=== PATIENT | female | born 1995 | race Caucasian/White ===

== ENCOUNTER → 2018-07-20 15:12 | Outpatient (CLI) | payer SELFPAY | PROVIDERS: Family Provider Pediatrics; Visit Provider Physician Assistant | DX: N39.0 Urinary tract infection, site not specified (principal) | CPT/HCPCS: 87077; 87086; 87186 ==

== ENCOUNTER → 2018-12-14 10:44 | Outpatient (CLI) | payer SELFPAY | PROVIDERS: Family Provider Pediatrics; Visit Provider Physician Assistant | DX: N39.0 Urinary tract infection, site not specified (principal) | CPT/HCPCS: 87086 ==

== ENCOUNTER → 2019-07-15 11:43 | Outpatient (CLI) | payer OTHER, MEDICAID, SELFPAY ==
--- NOTE | 2019-07-15 11:45 | DI.US.S_ITS ---
PROCEDURE: US OB <= 14 WEEKS FETUS INDICATIONS: INITIAL US FOR DATING AND VIABILITY OUTSIDE/PRIOR DATING DATA: Last menstrual period (LMP): 05/19/19. LMP-based estimated date of delivery (DIVYA): 02/23/20. First dating scan (date and location): This study, 07/15/19. Estimated date of delivery (DIVYA) from first dating scan: 03/07/20. TECHNIQUE: Real-time scanning was performed of the fetus and maternal pelvic organs, with image documentation. Endovaginal scanning was also performed to better visualize the fetus and maternal ovaries. COMPARISON: None. FINDINGS: Embryo: [place]-rump length of 5 mm correlates with a gestational age of 6 weeks 2 days, plus or -5 days Measurement variability in dating: +/- 4 weeks by LMP, +/- 7 days by mean sac diameter (use before 6 weeks gestation if crown-rump length not able to be measured), +/- 5 days by crown-rump length (up to 8 weeks 6 days gestation), +/- 7 days by crown-rump length (up to 13 weeks 6 days gestation). Maternal organs: Ovaries with appeared normal. Limited images through the kidneys demonstrate no hydronephrosis. IMPRESSION: 6 week 2 day gestational age with delivery date projected to be centered on 03/07/20, plus or -5 days. Followup anatomic survey at 20 weeks gestation is recommended. Dictated by: Chris Reyes M.D. on 07/15/2019 at 14:25 Approved by: Chris Reyes M.D. on 07/15/2019 at 14:33
== END ==
PROVIDERS: Visit Provider Obstetrics & Gynecology
DX: Z34.91 Encounter for supervision of normal pregnancy, unspecified, first trimester (principal); Z3A.01 Less than 8 weeks gestation of pregnancy
CPT/HCPCS: 76801

== ENCOUNTER → 2019-07-28 19:38 | Outpatient (CLI) | payer OTHER, MEDICAID, SELFPAY | PROVIDERS: Visit Provider Physician Assistant | DX: R30.0 Dysuria (principal) | CPT/HCPCS: 87077; 87086 ==

== ENCOUNTER → 2019-08-10 14:40 | Outpatient (CLI) | payer OTHER, MEDICAID, SELFPAY ==
[2019-08-10 15:31] LABS: Appearance Urine UA CLEAR; Bilirubin Urine UA NEGATIVE (NEGATIVE); Color Urine UA YELLOW; Glucose Urine UA NEGATIVE (Negative); Ketones Urine UA NEGATIVE (NEGATIVE); Leukocyte Esterase Urine UA NEGATIVE (NEGATIVE); Nitrite Urine UA NEGATIVE (Negative); Occult Blood Urine UA NEGATIVE (Negative); Protein Urine UA NEGATIVE (Negative); Specific Gravity Urine UA <=1.005 (1.000-1.035); Urobilinogen Urine UA 0.2 E.U./dL (0.2)
[2019-08-10 15:32] LABS: Add Manual Diff / Slide Review NO; Basophils Absolute Auto 0 /uL (0-100); Basophils Percent Auto 0.3 % (0-2); Eosinophils Absolute Auto 100 /uL (0-450); Eosinophils Percent Auto 1.2 % (2-4); Hemoglobin 12.1 g/dL (12.0-16.0); Lymphocytes Absolute Auto 1600 /uL (1100-4500); Lymphocytes Percent Auto 22.8 % (25-40); Mean Corpuscular HGB Conc 34.6 % (30-36); Mean Corpuscular Volume 92.4 fL (80-100); Monocytes Absolute Auto 400 /uL (0-900); Monocytes Percent Auto 5.2 % (3-14); Neutrophils Absolute Auto 4900 /uL (1500-7000); Neutrophils Percent Auto 70.5 % (50-75); Platelet Count 260 X10^3/uL (150-400); Red Blood Cell Count 3.78 X10^6/uL (4.0-5.2); Red Cell Distribution Width 12.4 % (11.6-14.8); White Blood Cell Count 6.9 X10^3/uL (4.5-11.0)
[2019-08-10 17:58] LABS: Hepatitis B Surface Antigen NEGATIVE s/c (NEGATIVE)
[2019-08-10 18:08] LABS: HIV 1 & 2 Ab/Ag 4th Gen Combo NEGATIVE (NEGATIVE); Hep C Virus Ab w/Reflex Quant NEGATIVE s/c (NEGATIVE)
[2019-08-15 15:21] LABS: RPR Screen NONREACTIVE
== END ==
PROVIDERS: Visit Provider Obstetrics & Gynecology
DX: Z34.01 Encounter for supervision of normal first pregnancy, first trimester (principal)
CPT/HCPCS: 36415; 80055; 81003; 86787; 86803; 86850; 86900; 86901; 87086; 87389

== ENCOUNTER → 2019-10-21 07:37 | Outpatient (CLI) | payer OTHER, MEDICAID, SELFPAY ==
--- NOTE | 2019-10-21 07:40 | DI.US.S_ITS ---
PROCEDURE: US OB >= 14 WEEKS FETUS INDICATIONS: ANATOMY OUTSIDE/PRIOR DATING DATA: Last menstrual period (LMP): 05/19/19. LMP-based estimated date of delivery (DIVYA): 02/23/20. First dating scan (date and location): 07/15/19. Estimated date of delivery (DIVYA) from first dating scan: 03/17/20. TECHNIQUE: Real-time scanning was performed of the fetus, with image documentation and biometric measurements. Endovaginal scanning: Not performed COMPARISON: [facility], , OB >= 14 WEEKS FETUS, 10/04/2019, 10:08. FINDINGS: General: A single living intrauterine gestation is present. Presentation: Transverse with head towards maternal left side. Placenta: Placental position is posterior inferior. Tip of the placenta is near the internal os. Amniotic fluid index: 14.9 cm, normal range is 5-24 cm. heart rate: 143 beats per minute. Maternal cervical canal: 3.2 cm long. Normal lower limit is 2.5 cm. biometrics: Biparietal diameter: 4.5 cm, 19 weeks, 4 days. Head circumference: 17.7 cm, 20 weeks, one day. Abdominal circumference: 15.2 cm, 20 weeks, 3 days. Femur length: 3.2 cm, 19 weeks, 6 days. Estimated gestational age from initial scan: 20 weeks, 2 days. Composite gestational age from present scan: 20 weeks, zero days. Estimated weight and percentile: 335 g Measurement variability for biometric dating: +/- 7 days from 14 weeks to 15 weeks 6 days gestation, +/- 10 days from 16 weeks to 21 weeks 6 days gestation, +/- 2 weeks from 22 weeks to 27 weeks 6 days gestation, +/- 3 weeks for 28 weeks gestation or later. weight reference: 4500 g or EFW >90/95% is considered macrosomia or large for gestational age. EFW <10% is small for gestational age. EFW 5% or less is considered intra-uterine growth restriction. Anatomic survey: Neuro: Ventricles are non-dilated at less than 10 mm. Cisterna magna is normal at 3-11 mm. Cerebellum is normal in size and morphology. Nuchal skin fold: Normal at less than 6 mm between 14-21 weeks gestational age. Face: Nose and lips, facial profile are normal. Spine: No evidence for spina bifida. Heart: 4-chambered heart is present, with normal ventricular outflow tracts. Diaphragm: Diaphragm is intact. Stomach: Left-sided stomach is present. Kidneys: No hydronephrosis. Normal is less than 5 mm in 2nd trimester, less than 7 mm in 3rd trimester. Cord: 3-vessel cord has orthotopic insertion. Bladder: Normal in size. Extremities: All 4 extremities identified. IMPRESSION: 1. Single live intrauterine . The fetus is in transverse presentation. heart rate is 143 beats per minute. Normal amount of amniotic fluid. 2. Normal anatomy. 3. Low-lying posterior placenta. No papito placenta previa. Followup study is recommended. Dictated by: Enzo Camp M.D. on 10/21/2019 at 12:40 Approved by: Enzo Camp M.D. on 10/21/2019 at 12:45
== END ==
PROVIDERS: Visit Provider Obstetrics & Gynecology
DX: Z36.89 Encounter for other specified antenatal screening (principal); Z3A.20 20 weeks gestation of pregnancy
CPT/HCPCS: 76811

== ENCOUNTER → 2019-11-28 11:17 | Outpatient (CLI) | payer OTHER, MEDICAID, SELFPAY ==
[2019-11-28 13:41] LABS: Hematocrit 31.8 % (36-46); Hemoglobin 11.2 g/dL (12.0-16.0)
[2019-11-28 14:12] LABS: GTT (PREG) 1 Hour PP 50gm Dose 110 mg/dL (76-139)
== END ==
PROVIDERS: Visit Provider Obstetrics & Gynecology
DX: Z34.02 Encounter for supervision of normal first pregnancy, second trimester (principal); Z3A.24 24 weeks gestation of pregnancy
CPT/HCPCS: 36415; 82950; 85014; 85018

== ENCOUNTER → 2020-01-04 08:32 | Outpatient (CLI) | payer OTHER, MEDICAID, SELFPAY ==
--- NOTE | 2020-01-04 08:34 | DI.US.S_ITS ---
PROCEDURE: US OB LIMITED INDICATIONS: LOW LYING PLACENTA F/U OUTSIDE/PRIOR DATING DATA: Last menstrual period (LMP): 05/19/19. LMP-based estimated date of delivery (DIVYA): 02/23/20. First dating scan (date and location): 07/15/19. Estimated date of delivery (DIVYA) from first dating scan: 03/07/20. TECHNIQUE: Real-time scanning was performed of the fetus, with image documentation. Endovaginal scanning: Not needed COMPARISON: [facility], OB >= 14 WEEKS FETUS, 10/21/2019, 7:57. [facility], OB >= 14 WEEKS FETUS, 10/04/2019, 10:08. [facility], OB <= 14 WEEKS FETUS, 08/10/2019, 14:19. [facility], OB <= 14 WEEKS FETUS, 07/15/2019, 11:54. FINDINGS: A single living intrauterine gestation is present. Presentation: Vertex Placenta: Placental position is posterior without previa. Amniotic fluid index: 17.0 cm, normal range is 5-24 cm. heart rate: 143 beats per minute. Maternal cervical canal: 4.6 cm long. Normal lower limit is 2.5 cm. Estimated gestational age from initial scan: 31 weeks 0 days. IMPRESSION: The relationship of the placenta to the internal os of the cervical canal has clarified, with no evidence of previa, and the placental margin at least 5.1 cm from the internal os. Dictated by: Chris Reyes M.D. on 01/04/2020 at 12:02 Approved by: Chris Reyes M.D. on 01/04/2020 at 16:42
== END ==
PROVIDERS: PCP Family Medicine; Referring Provider Family Medicine; Visit Provider Family Medicine
DX: O44.43 Low lying placenta NOS or without hemorrhage, third trimester (principal); Z3A.31 31 weeks gestation of pregnancy
CPT/HCPCS: 76815

== ENCOUNTER → 2020-02-08 12:04 | Outpatient (CLI) | payer OTHER, MEDICAID, SELFPAY ==
[2020-02-09 13:04] LABS: Strep Grp B PCR NEG for Grp B Strep
== END ==
PROVIDERS: PCP Family Medicine; Visit Provider Family Medicine
DX: Z34.00 Encounter for supervision of normal first pregnancy, unspecified trimester (principal); Z3A.36 36 weeks gestation of pregnancy
CPT/HCPCS: 87653

== ENCOUNTER 2020-03-01 18:08 | Inpatient (IN) | payer OTHER, MEDICAID, SELFPAY ==
[2020-03-01] MEDS: DINOPROSTONE VAG (CERVIDIL) 10 MG VAG (20:40)
[2020-03-01 21:51] LABS: Add Manual Diff / Slide Review NO; Basophils Absolute Auto 100 /uL (0-100); Basophils Percent Auto 0.5 % (0-2); Eosinophils Absolute Auto 100 /uL (0-450); Eosinophils Percent Auto 0.8 % (2-4); Hematocrit 38.8 % (36-46); Lymphocytes Absolute Auto 2900 /uL (1100-4500); Lymphocytes Percent Auto 29.2 % (25-40); Mean Corpuscular HGB Conc 33.4 % (30-36); Mean Corpuscular Hemoglobin 30.6 PG (26-34); Mean Corpuscular Volume 91.6 fL (80-100); Monocytes Absolute Auto 400 /uL (0-900); Monocytes Percent Auto 4.5 % (3-14); Neutrophils Absolute Auto 6500 /uL (1500-7000); Platelet Count 165 X10^3/uL (150-400); Red Blood Cell Count 4.23 X10^6/uL (4.0-5.2); Red Cell Distribution Width 13.3 % (11.6-14.8)
[2020-03-01 23:32] VITALS: BP 110/76
--- NOTE | 2020-03-02 04:14 | P.HPOB_ITS ---
OB HPI Date/Time Date of admission: 03/01/20 Date Patient Seen: 03/02/20 Time Patient Seen: 04:15 History of Present Condition Chief complaint: EVAL OF LABOR : 1 Para: 0 Estimated Date of Delivery: 03/07/20 Estimated Gestational Age (weeks): 39w2d Narrative: Nette Vyas is a 25 year old at 39w2d here for elective IOL. Pt reports mild cramping prior to presentation. No vaginal bleeding or LOF. She was feeling baby move regularly. Indications Indication for induction OB: other (elective due to COVID-19) History of Present care: good care, initiated at week # (10) and pounds weight gain (13) Dating criteria: based on 1st trimester US only Ultrasounds: normal 1st trimester US and normal mid trimester US Abnormal ultrasound findings: low-lying placenta resolved on repeat ultrasound Obstetrical complications: none Medical complications: none Preadmission Labs Blood type: O (+) positive -: Antibody screen: negative, GBS status: negative, HBsAG: negative, HIV: negative and RPR/VDLR: negative -: Chlamydia screen: not detected and Gonorrhea screen: not detected -: Rubella: immune and Varicella: immune HCT: 31.8 HCAB: negative PAP: Normal 1 hr GTT: 110 Evaluation Evaluation Baseline heart rate: 130 Variability: Moderate (11-25) monitor accelerations: Present monitor decelerations: Variable Contraction Frequency (minutes): 1 Uterine Contraction Intensity: Strong/Firm Category of Tracing: II Cervical dilation (cm): 9 Cervical effacement (%): 100 station: +1 Laboratory results: Laboratory Tests 03/01/20 03/01/20 21:45 21:45 WBC 10.0 RBC 4.23 Hgb 13.0 Hct 38.8 MCV 91.6 MCH 30.6 MCHC 33.4 RDW 13.3 Plt Count 165 Neut % (Auto) 65.0 Lymph % (Auto) 29.2 Jennings % (Auto) 4.5 Eos % (Auto) 0.8 L Baso % (Auto) 0.5 Neut # (Auto) 6500 Lymph # (Auto) 2900 [place] # (Auto) 400 Eos # (Auto) 100 Baso # (Auto) 100 Blood Type O Positive Antibody Screen Negative [facility] Social History Smoking Status: Never smoker Meds Home Medications and Allergies Home Medications Medication Instructions Recorded Confirmed Type prenat.vits,kaylyn,tfs-xwtk-gflio 1 tab PO DAILY 01/11/20 01/11/20 History Allergies Allergy/AdvReac Type Severity Reaction Status Date / Time INGREDIENT: NO KNOWN - NO Allergy Unknown Uncoded 01/11/20 11:33 KNOWN DRUG ALLERGY Exam Vital Signs (past 8 hours): - 03/01/20 23:32 Blood Pressure 110/76 Narrative Exam Narrative: Gen: NAD, laying comfortably in bed, appears well CV: RRR, no murmurs Resp: clear to auscultation bilaterally Abd: soft, nondistended, gravid Ext: no edema Objective Labs Result Diagrams: 03/01/20 21:45 Labs: Laboratory Results - last 24 hr 03/01/20 03/01/20 21:45 21:45 WBC 10.0 RBC 4.23 Hgb 13.0 Hct 38.8 MCV 91.6 MCH 30.6 MCHC 33.4 RDW 13.3 Plt Count 165 Neut % (Auto) 65.0 Lymph % (Auto) 29.2 Jennings % (Auto) 4.5 Eos % (Auto) 0.8 L Baso % (Auto) 0.5 Neut # (Auto) 6500 Lymph # (Auto) 2900 Jennings # (Auto) 400 Eos # (Auto) 100 Baso # (Auto) 100 Blood Type O Positive Antibody Screen Negative Assessment and Plan Assessment and Plan Assessment and Plan narrative: 25yo at 39w2d here for elective IOL. Pt received cervidil overnight. Had SROM at 1:30am with clear fluid. Cervidil removed. Pt with tachysystole contraction pattern, q1-2 minutes. Now with recurrent variable decelerations, with rapidly changing cervix from 5 to 9cm in less than an hour. IUPC inserted and amnioinfusion initiated to help resolve decels. - Expectant management, anticipate - FHT Category II. Continue amnioinfusion - 500cc bolus followed by 250cc/hr. Oxygen in place. Continue position changes. - Epidural in place for pain control - GBS negative, no antibiotic prophylaxis
--- NOTE | 2020-03-02 06:29 | PM.OBPRVD ---
Labor & Delivery Delivery date: 03/02/20 Intrapartal events: Intolerance Cervical ripening method: per Cervidil protocol Induction method: none Delivery monitor: external FHT Route of delivery: vacuum extraction Indication for instrumentation: nonreassuring FHR tracing Episiotomy description: None L&D Laceration Description: Perineal - 2nd Degree and Labial Delivery repair: chromic Estimated blood loss (mL): 250 Anesthesia type: Epidural Complications: None Narrative: PROCEDURE: at 39w2d presented for IOL and was admitted to Labor and Delivery. She received cervidil for induction. Soon after placement, the pt began having regular painful contractions. The patient progressed through the 1st stage over 3 hours. Pain was controlled with an epidural. The pt progressed rapidly. She had recurrent variable decels, and IUPC was placed with amnioinfusion initiated. The decels improved, but did not cease entirely. With pushing, the pt had deep decelerations. With time, recovery to baseline began to slow, with less variability when at baseline (minimal). Due to this, the decision was made to proceed with a vacuum-assisted vaginal delivery. Patient was evaluated and noted to have adequate pain control. Patient counseled on risks/benefits/alternatives of vacuum assisted delivery. Risks were discussed and they included but were not limited to a need for an episiotomy, pressure nur on the baby, lacerations to the baby's scalp/face, serious damage including skull fracture, the need to proceed with an abdominal procedure, , paralysis of the baby's arms and/or legs, neurological impairment of the baby. Alternatives would include CS or further observation depending on status. Questions were answered and the patient verbalized an understanding and decided to proceed. Cervix completely dilated and maternal bladder emptied. Maternal pelvis was noted to be adequate Vertex presentation and +3 station. Vacuum cup of the [employer] applied to the flexion point without difficulty and during contractions, pressure applied between 400-600 mmHg as indicated in the green zone of the pressure gauge. Infant delivered after 12 pulls over 4 contractions with 0 pop-offs over an intact perineum. Total duration of application of the vacuum was 7 minutes. The anterior shoulder and remainder of the was delivered without difficulty. Cord clamped and cut after it stopped pulsing. was placed on maternal abdomen. Due to spontaneous cry immediately after delivery and pt appearing well, cord gases were not collected. Infant was examined and no evidence of injury noted. Total length of the 2nd stage was 1 hour with delivered a viable female infant with APGARs 9/9 at 5:41. The perineum and vagina were inspected with small second degree perineal and right labial lacerations repaired with 3-O Chromic. PREPROCEDURE DIAGNOSIS: Intrauterine at 39w2d GBS negative RH positive POSTPROCEDURE DIAGNOSIS: Intrauterine at 39w2d, delivered Same as preprocedure Non-reassuring heart tones Vacuum-assisted vaginal delivery ROM APPEARANCE: Clear BABY A DELIVERY TIME: 5:41 BABY A WEIGHT: 6lb13.5oz BABY A NUCHAL CORD: None PLACENTA DELIVERY TIME: 5:47 PLACENTA APPEARANCE: Intact [place] Baby 1: gender: Female Presentation: vertex position: Transverse Placenta delivery description: Spontaneous cord vessel description: 3 Vessels score (1 min): 9 score (5 min): 9 Plan for aftercare: Normal care
[2020-03-02] MEDS: LANOLIN OINT 7 GM 1 APPLIC TOP (09:58)
[2020-03-02] MEDS: IBUPROFEN 600 MG TABLET PO ×3 (09:58→22:15)
[2020-03-02] MEDS: DOCUSATE 100 MG CAPSULE PO (09:58)
[2020-03-02] MEDS: ACETAMINOPHEN 325 MG TABLET 650 MG PO ×3 (09:59→22:14)
[2020-03-03] MEDS: ACETAMINOPHEN 325 MG TABLET 650 MG PO ×2 (04:16→12:23)
[2020-03-03] MEDS: IBUPROFEN 600 MG TABLET PO (04:17)
[2020-03-03] MEDS: DOCUSATE 100 MG CAPSULE PO (08:31)
--- NOTE | 2020-03-03 09:15 | P.DS_ITS ---
Discharge Providers Provider Date of admission: 03/01/20 18:08 Discharge Date: 03/03/20 Primary care physician: Carol Welch MD Consults: 03/03/20 06:27 Consult to Insurance Sales Manager Routine Comment: Discharge provider: Carol Welch MD Summary Hospital Course Date Patient Seen: 03/03/20 Time Patient Seen: 09:00 Procedures: Vacuum-assisted vaginal delivery Hospital Course: The pt presented for elective IOL at 39w1d. She received cervidil overnight, and progressed into active labor. She had SROM with clear fluid. She had an epidural for pain control. She rapidly progressed to complete dilation, with Category II tracing with repetitive variable decels. IUPC was placed with amnioinfusion started, with some improvement in tracing. During pushing, the pt has recurrent decels with progressively slowing return to baseline and minimal variability between. Due to nonreassuring heart tones, vacuum was used for delivery. The pt had a vaginal delivery of a viable baby girl on 03/01/20. A small 2nd degree perineal laceration and right labial laceration were repaired. The pt tolerated delivery well. there were no complications. At the time of discharge she was voiding, ambulating, and passing flatus without dif ficulty. Her lochia was decreasing appropriately. She was with good latch. She will f/u in clinic in 6 weeks for her check. Peripartum Data Infant Delivery Method: Assisted Delivery (vacuum) Laceration description: Perineal - 2nd Degree Episiotomy description: None Procedures: Vacuum-assisted vaginal delivery complications: none [place] 1: Gender: Female Disposition of : home Discharge Diagnosis (1) Vacuum-assisted vaginal delivery: Status: Acute Status at Discharge Cognitive/behavioral status at discharge: oriented Functional status at discharge: independent ambulation Overall status at discharge: patient is progressing back to baseline Time Spent with Patient Time attestation: Total time spent providing and/or coordinating discharge services: Time spent: Greater than 30 minutes Objective Labs Result Diagrams: 03/01/20 21:45 Exam Narrative Exam Narrative: Gen: NAD, sitting comfortably in bed, appears well CV: RRR, no murmurs Resp: clear to auscultation bilaterally Abd: soft, nontender, nondistended, fundus firm and below umbilicus Ext: no edema Discharge Plan Discharge Plan Patient Disposition: Home Discharge orders & Medications Prescriptions: New acetaminophen 325 mg Tablet 650 mg PO Q6HR PRN (Reason: Pain, Mild (1-3)) Qty: 30 RF: 0 Dermoplast (with menthol) 20-0.5 % Aerosol 1 spray topical Q1HR PRN (Reason: perineal pain) Qty: 54 RF: 0 docusate sodium [DOK] 100 mg Capsule 100 mg PO DAILY Qty: 30 RF: 0 ibuprofen 600 mg Tablet 600 mg PO Q6HR PRN (Reason: Pain, Mild (1-3)) Qty: 30 RF: 0 Exu-O-Oyjcll Cream 1 applic topical PRN PRN (Reason: Tenderness) Qty: 15 RF: 0 Continued prenat.vits,kaylyn,jak-fqit-dalkz Tablet 1 tab PO DAILY RF: 0 Follow up/Referrals: Carol Welch MD [Primary Care Provider] - 6 Weeks Diet/Activity/Treatments Diet: Regular Skin/Wound/Dressing Care Report to your healthcare provider any signs of infection, such as:: chills, fever, increased pain and unusual drainage Visit Report/Discharge Packet Instructions: DI for Labor and Delivery, Vaginal Visit Report Forms: Patient Portal/API, Stroke Signs & Symptoms Discharge Data Primary Care Provider: Carol Welch
[2020-03-03 11:50] VITALS: BP 120/71; PULSE 57; RESP 17; TEMP 36.9
== END 2020-03-03 13:30 | disposition home or self-care (01) | DRG 560 ==
PROVIDERS: Admitting Provider Family Medicine; PCP Family Medicine; Referring Provider Family Medicine; Visit Provider Family Medicine
DX: O70.1 Second degree perineal laceration during delivery (principal); Z3A.39 39 weeks gestation of pregnancy; Z37.0 Single live birth; O36.8330 Maternal care for abnormalities of the fetal heart rate or rhythm, third trimester, not applicable or unspecified; O76 Abnormality in fetal heart rate and rhythm complicating labor and delivery
CPT/HCPCS: 01967; 59050; 59200; 59409; 84112; 85025; 86850; 86900; 86901; G0379

== ENCOUNTER → 2020-11-15 11:34 | Outpatient (CLI) | payer OTHER, MEDICAID, SELFPAY | PROVIDERS: PCP Family Medicine; Visit Provider Physician Assistant | DX: R30.0 Dysuria (principal) | CPT/HCPCS: 87077; 87086 ==

== ENCOUNTER → 2021-11-21 15:13 | Outpatient (CLI) | payer OTHER, MEDICAID, SELFPAY ==
[2021-11-21 17:18] LABS: Urine N gonorrhoeae NOT DETECTED
[2021-11-21 17:19] LABS: Urine Chlamydia NOT DETECTED
== END ==
PROVIDERS: PCP Family Medicine; Referring Provider Physician Assistant; Visit Provider Physician Assistant
DX: R30.0 Dysuria (principal)
CPT/HCPCS: 81002; 87086; 87210; 87491; 87591

== ENCOUNTER → 2025-03-13 15:16 | Outpatient (CLI) | payer SELFPAY ==
--- NOTE | 2025-03-13 15:18 | DI.RAD.S_ITS ---
PROCEDURE: XR CHEST 2V INDICATIONS: Chest tightness TECHNIQUE: 2 views of the chest were acquired. COMPARISON: None. FINDINGS: Surgical changes and devices: None. Lungs and pleura: Patchy right upper lobe opacity. Mediastinum: Mediastinal contours are normal. Heart size is normal. Bones and chest wall: No suspicious bony abnormalities. Soft tissues appear unremarkable. IMPRESSION: Patchy right upper lobe opacity concerning for pneumonia. Dictated by: Rupesh Del Cid M.D. on 03/13/2025 at 15:38 Approved by: Rupesh Del Cid M.D. on 03/13/2025 at 15:39
== END ==
PROVIDERS: PCP Family Medicine; Referring Provider Family Medicine; Visit Provider Family Medicine
DX: R07.89 Other chest pain (principal)
CPT/HCPCS: 71046